=== PATIENT | male | born 1995 | race Caucasian/White ===

== ENCOUNTER 2023-11-18 12:17 | Emergency (ER) | payer SELFPAY ==
[~2023-11-18] VITALS: Ht 170.2 cm; Wt 59.0 kg
[2023-11-18 12:27] VITALS: BP 118/69; PULSE 117; RESP 20; TEMP 102; O2SAT 100
[2023-11-18] MEDS ORDERED: PENICILLIN G BENZATHINE L-A 1.2 MU/2 ML SYR IM ONE (12:40)
[2023-11-18] MEDS ORDERED: KETOROLAC 30 MG/ML VIAL IM ONE (12:40)
[2023-11-18] MEDS ORDERED: IBUP-2213 PO (12:41)
[2023-11-18] MEDS ORDERED: BENZ-300 PO (12:41)
[2023-11-18 12:50] VITALS: BP 118/69; PULSE 117; RESP 20; TEMP 102; O2SAT 100
[2023-11-18] MEDS ORDERED: PENI500T20 PO (13:22)
[2023-11-18 13:30] LABS: FLU A ANTIGEN negative (NEGATIVE); FLU B ANTIGEN NEGATIVE (NEGATIVE)
== END 2023-11-18 12:50 | disposition home or self-care (01) ==
LOC: MED 12:17
DX: J02.8 Acute pharyngitis due to other specified organisms (principal); Z20.822 Contact with and (suspected) exposure to COVID-19; Z79.899 Other long term (current) drug therapy
CPT/HCPCS: 87081; 99283; J0561; J1885

== ENCOUNTER 2024-03-07 12:31 | Emergency (ER) | payer MEDICAID, OTHER ==
[~2024-03-07] VITALS: Ht 170.2 cm; Wt 59.0 kg
[~2024-03-07 12:31] MED LIST: BENZ-300 PO; IBUP-2213 PO; PENI500T20 PO
[2024-03-07 12:39] VITALS: BP 147/96; PULSE 126; RESP 20; TEMP 98; O2SAT 100
[2024-03-07] MEDS: NACL 0.9% 1,000 ML IV ONE ×2 (14:52→15:58)
[2024-03-07 17:25] LABS: APPEARANCE,URINE SL CLOUDY (CLEAR); BILIRUBIN,URINE NEGATIVE (NEGATIVE); BLOOD, URINE NEGATIVE (NEGATIVE); COLOR,URINE YELLOW (YELLOW); LEUKOCYTE ESTERASE ,URINE NEGATIVE (NEGATIVE); NITRITE, URINE NEGATIVE (NEGATIVE); PH,URINE 7.5 (5.0-9.0); PROTEIN,URINE 1+ (NEGATIVE); UGLUCOSE NEGATIVE (NEGATIVE)
[2024-03-07] MEDS ORDERED: ONDA8TAB87 PO (17:45)
== END 2024-03-07 17:55 | disposition home or self-care (01) ==
LOC: MED 12:31
DX: E86.0 Dehydration (principal); R11.2 Nausea with vomiting, unspecified; R35.0 Frequency of micturition; K21.9 Gastro-esophageal reflux disease without esophagitis; F17.200 Nicotine dependence, unspecified, uncomplicated; Z79.899 Other long term (current) drug therapy
CPT/HCPCS: 81003; 96360; 96361; 99283; J7030